=== PATIENT | female | born 1955 | race Caucasian/White ===

== ENCOUNTER → 2023-11-10 13:09 | Outpatient (REF) | payer MEDICARE, SELFPAY | LOC: WDC 13:09 | PROVIDERS: ATTENDING PHYSICIAN Obstetrics & Gynecology; FAMILY PHYSICIAN Internal Medicine | DX: Z12.31 Encounter for screening mammogram for malignant neoplasm of breast (principal); Z78.0 Asymptomatic menopausal state | CPT/HCPCS: 77063; 77067; 77080 ==

== ENCOUNTER → 2024-07-14 06:28 | Day surgery (SDC) | payer MEDICARE, SELFPAY | LOC: GI 06:28 | PROVIDERS: ATTENDING PHYSICIAN Internal Medicine Gastroenterology; FAMILY PHYSICIAN Internal Medicine | DX: Z12.11 Encounter for screening for malignant neoplasm of colon (principal); D12.0 Benign neoplasm of cecum; D12.2 Benign neoplasm of ascending colon; D12.3 Benign neoplasm of transverse colon; K57.30 Diverticulosis of large intestine without perforation or abscess without bleeding | CPT/HCPCS: 45385; 45380; 88305 ==

== ENCOUNTER → 2024-10-03 16:16 | Outpatient (REF) | payer MEDICARE, SELFPAY | LOC: RAD 16:16 | PROVIDERS: ATTENDING PHYSICIAN Hospitalist; FAMILY PHYSICIAN Internal Medicine | DX: M62.838 Other muscle spasm (principal); Z91.81 History of falling | CPT/HCPCS: 72040 ==

== ENCOUNTER → 2024-11-09 19:24 | Outpatient (REF) | payer MEDICARE, SELFPAY | LOC: WDC 19:24 | PROVIDERS: ATTENDING PHYSICIAN Obstetrics & Gynecology; FAMILY PHYSICIAN Internal Medicine | DX: Z12.31 Encounter for screening mammogram for malignant neoplasm of breast (principal) | CPT/HCPCS: 77063; 77067 ==